=== PATIENT | male | born 1940 | race Caucasian/White ===

== ENCOUNTER 2016-09-22 08:10 | Emergency (ER) | payer OTHER, MEDICARE ==
[~2016-09-22] VITALS: Ht 188 cm; Wt 98.9 kg
[2016-09-22 08:17] VITALS: BP 164/86
--- NOTE | 2016-09-22 08:47 | ED AMS/SEIZURE/WEAK/DIZZY ---
History of Present Illness General Chief Complaint: Abdominal Pain/Flank Pain Stated Complaint: N/V/D,SWEATS,ABDOMINAL PAIN Source: patient, family, old records Exam Limitations: no limitations Vital Signs & Intake/Output Vital Signs & Intake/Output Vital Signs Date Time Temp Pulse Resp B/P B/P Pulse O2 O2 Flow FiO2 Mean Ox Delivery Rate 09/22 0817 97.7 60 20 164/86 99 Room Air Allergies Coded Allergies: No Known Allergies (09/22/16) Reconcile Medications Allopurinol 300 MG TABLET 1 TAB PO DAILY GOUT (Reported) Esomeprazole (Nexium) 40 MG CAPSULE.DR 1 CAP PO DAILY GI (Reported) Lisinopril 20 MG TABLET 1 TAB PO DAILY HEART (Reported) [place]-3 Fatty Acids/Fish Oil (Fish Oil 1,000 MG Capsule) 340 MG-1,000 MG CAPSULE 1 CAP PO DAILY SUPPLEMENT (Reported) Triage Note: PT TO ED C/O N/V SINCE YESTERDAY. ALSO C/O FEELING DIZZY. DENIES ABD PAIN. DENIES S/S. Triage Nurses Notes Reviewed? yes HPI: Since yesterday evening patient has been experiencing room spinning dizziness as well as nausea vomiting and diarrhea diaphoresis. Patient denies any chest pain. There is no abdominal pain. There is no diarrhea. Patient states she was gardening yesterday when all of a sudden he broke a cold sweat and then experienced room spinning dizziness associated with the nausea. The symptoms worsen with an inferior he turns his head to the right. Patient states that a few months ago he had a sudden hearing loss in his right ear. Patient has been seen by his doctor and had a scan which was negative. Patient was told that it was probably a virus. Patient has been having tendinitis in that ear since then. Past History Travel History Traveled to [place] past 21 day No Medical History Any Pertinent Medical History? see below for history Cardiovascular: hypertension Musculoskeletal: gout Surgical History Surgical History: non-contributory Psychosocial History What is your primary language Azeri Tobacco Use: Never used ETOH Use: occasional use Illicit Drug Use: denies illicit drug use Family History Hx Contributory? No Review of Systems Review of Systems Constitutional: Reports: no symptoms. EENTM: Reports: no symptoms. Respiratory: Reports: no symptoms. Cardiovascular: Reports: no symptoms. GI: Reports: see HPI, nausea. Genitourinary: Reports: no symptoms. Musculoskeletal: Reports: no symptoms. Skin: Reports: no symptoms. Neurological/Psychological: Reports: see HPI. Hematologic/Endocrine: Reports: no symptoms. Immunologic/Allergic: Reports: no symptoms. All Other Systems: Reviewed and Negative Physical Exam Physical Exam General Appearance: well developed/nourished, alert, awake, moderate distress Head: atraumatic, normal appearance Eyes: Bilateral: PERRL, EOMI, other (+ NYSTAGMUS). Ears, Nose, Throat: normal pharynx, normal ENT inspection Neck: normal inspection, supple, full range of motion Respiratory: normal breath sounds, chest non-tender, no respiratory distress, lungs clear Cardiovascular: regular rate/rhythm, normal peripheral pulses Gastrointestinal: normal bowel sounds, soft, non-tender, no organomegaly Extremities: normal range of motion Neurologic/Psych: no motor/sensory deficits, awake, alert, oriented x 3, normal mood/affect Skin: intact, normal color, warm/dry Lymphatic: no anterior cervical ander Core Measures ACS in differential dx? No CVA/TIA Diagnosis: No Severe Sepsis Present: No Septic Shock Present: No Progress Differential Diagnosis: arrythmia, benign positional vertigo, CVA/stroke, drug intoxication, electrolyte imbalance, intracranial mass/tumor, labrynthitis, Meniere's disease, postural hypotension Plan of Care: Orders Procedure Date/time Status Telemetry/Chemical Dependency Counselor 09/22 0846 Active URINALYSIS 09/22 0846 Active TROPONIN LEVEL 09/22 0846 Complete LIPASE 09/22 0846 Complete COMPREHENSIVE METABOLIC PANEL 09/22 0846 Complete CBC WITHOUT DIFFERENTIAL 09/22 08 Complete AMYLASE 09/22 0846 Complete EKG 09/22 0819 Active Laboratory Tests 09/22/16 0911: Anion Gap 9, Estimated GFR > 60, BUN/Creatinine Ratio 17.0, Glucose 95, Calcium 9.2, Total Bilirubin 0.9, AST 19, ALT 27, Alkaline Phosphatase 41, Troponin I < 0.01, Total Protein 6.7, Albumin 3.8, Globulin 2.9, Albumin/Globulin Ratio 1.3, Amylase 85, Lipase 50, CBC w Diff NO MAN DIFF REQ, RBC 4.96, MCV 88.1, MCH 29.6, RDW 14.9 H, MPV 8.6, Gran % 64.8, Lymphocytes % 25.0, Monocytes % 8.3, Eosinophils % 1.1, Basophils % 0.8, Absolute Granulocytes 2.8, Absolute Lymphocytes 1.1 L, Absolute Monocytes 0.4, Absolute Eosinophils 0, Absolute Basophils 0, PUBS MCHC 33.6 Initial ED EKG: NSR, no ST T wave changes Prior EKG: unchanged Comments: Patient is feeling much better after Zofran and Antivert. Departure Departure Disposition: HOME OR SELF CARE Condition: Stable Clinical Impression Primary Impression: Vertigo Referrals: KHANG PACHECO,SALO Moses (PCP/Family) Additional Instructions: FOLLOW UP WITH YOUR ENT DOCTOR TAKE ANTIVERT AND ZOFRAN NEEDED RETURN FOR ANY CONCERNS Departure Forms: Customer Survey General Discharge Information Prescriptions: Current Visit Scripts Meclizine HCl 1 TAB PO Q6P #30 TAB Ondansetron (Zofran Odt) 1 TAB SL TID PRN NAUSEA #10 TAB
[2016-09-22 09:27] LABS: ABSOLUTE BASOPHIL COUNT 0 /CUMM (0.0-0.2); ABSOLUTE EOSINOPHIL COUNT 0 /CUMM (0.0-0.7); ABSOLUTE GRANULOCYTE CT 2.8 /CUMM (1.4-6.5); ABSOLUTE LYMPH COUNT 1.1 /CUMM (1.2-3.4); ABSOLUTE MONOCYTE COUNT 0.4 /CUMM (0.10-0.60); BASOPHIL % 0.8 % (0.0-2.0); EOSINOPHIL % 1.1 % (0-5); GRANULOCYTE % 64.8 % (42.2-75.2); HEMATOCRIT 43.7 % (42-52); MEAN CORPUSCULAR HGB 29.6 PG (27.0-31.0); MEAN CORPUSCULAR HGB CONC 33.6 G/DL (33.0-37.0); MEAN CORPUSCULAR VOLUME 88.1 FL (80.0-94.0); MEAN PLATELET VOLUME 8.6 FL (7.4-10.4); PLATELET COUNT 194 /CUMM (130-400); RBC DISTRIBUTION WIDTH 14.9 % (11.5-14.5); RED BLOOD CELL CT 4.96 /CUMM (4.70-6.10); WHITE BLOOD CELL COUNT 4.3 /CUMM (4.8-10.8)
[2016-09-22] MEDS ORDERED: NEXIUM40 M1 PO (09:45)
[2016-09-22] MEDS ORDERED: LISINOPRIL20 M1 PO (09:45)
[2016-09-22] MEDS ORDERED: ALLOPURINOL300 M1 PO (09:46)
[2016-09-22] MEDS ORDERED: FISH OIL 1,0001 EACH PO (09:46)
[2016-09-22] MEDS ORDERED: MECLIZINE HCL25 MG PO (10:21)
[2016-09-22] MEDS ORDERED: ZOFRAN ODT4 M1 SL (10:21)
== END 2016-09-22 10:30 ==
LOC: ERH 08:10
PROVIDERS: Emergency Medicine
DX: R42 Dizziness and giddiness (principal)
CPT/HCPCS: 93005; 93010; 96361; 96374; J2405